=== PATIENT | female | born 1985 | race Caucasian/White ===

== ENCOUNTER 2017-01-17 20:56 | Emergency (ER) | payer MEDICAID ==
[2017-01-17] MEDS ORDERED: NS 1,000 ML IV ONE ×2 (21:31→22:44)
[2017-01-17 21:42] LABS: % IMMATURE GRANULYOCYTES 0.1 % (0.0-1.1); ABSOLUTE IMMATURE GRANULOCYTES 0.01 10^3/uL (0.00-0.10); ADD DIFF? NO; ADD MORPH? NO; ADD SCAN? NO; ATYPICAL LYMPHOCYTE FLAG 20 (0-99); FRAGMENT RBC FLAG 0 (0-99); HEMATOCRIT 35.6 % (38.0-47.0); HEMOGLOBIN 12.3 g/dL (12.6-16.3); LEFT SHIFT FLG 0 (0-99); LIPEMIA HEMOLYSIS FLAG 90 (0-99); MEAN CELL HEMOGLOBIN 29.1 pg (27.9-34.1); MEAN CELL HEMOGLOBIN CONCENTR. 34.6 g/dL (32.4-36.7); MEAN CELL VOLUME 84.2 fL (81.5-99.8); MEAN PLATELET VOLUME 9.3 fL (8.7-11.7); PLATELET CLUMPS FLAG 0 (0-99); PLATELET COUNT 367 10^3/uL (150-400); RED BLOOD CELL COUNT 4.23 10^6/uL (4.18-5.33); RED CELL DISTRIBUTION WIDTH 13.3 % (11.5-15.2)
--- NOTE | 2017-01-17 21:42 | CPEKG ---
Heart Rate: 56 RR Interval: 1071 P-R Interval: 172 QRSD Interval: 116 QT Interval: 460 QTC Interval: 444 P Hitchcock: 40 QRS Hitchcock: 64 T Wave Hitchcock: 36 EKG Severity - ABNORMAL ECG - EKG Impression: SINUS RHYTHM EKG Impression: INCOMPLETE RIGHT BUNDLE BRANCH BLOCK Electronically Signed By: Alexx Manuel 18-Jan-2017 08:58:45
[2017-01-17] MEDS ORDERED: ONDANSETRON 4 MG/2 ML VIAL IVP ONE (21:45)
[2017-01-17 22:12] LABS: ANION GAP 11 mEq/L (8-16); CALCIUM 9.6 mg/dL (8.5-10.4); CARBON DIOXIDE 23 mEq/l (22-31); CHLORIDE 104 mEq/L (97-110); CREATININE 0.7 mg/dL (0.6-1.0); GLOMERULAR FILTRATION RATE > 60; GLUCOSE 93 mg/dL (70-100); POTASSIUM 4.1 mEq/L (3.5-5.2); SODIUM 138 mEq/L (134-144)
--- NOTE | 2017-01-17 22:26 | EDPHY ---
H & P Stated Complaint: fainting x 19days- hx pericarditis, left tampon in 17days Time Seen by Provider: 01/17/17 21:47 HPI/ROS: HPI CHIEF COMPLAINT: Syncope HISTORY OF PRESENT ILLNESS: This patient very pleasant 31-year-old female significant past medical history for migraine headaches, previous eating disorder, pericarditis, multiple surgeries of her kidneys due to severe hydronephrosis, presents emergency room after she tells me she has been passing out over the past 19 days. She tells me she has had 8 separate syncopal episodes. Positive LOC. These were unwitnessed. She does endorse bowel bladder incontinence at times and waking up very confused. She denies any significant preceding symptoms. Specifically denies chest pain, palpitations, shortness of breath. She does admit to having some lightheadedness. Patient also tells me that she accidentally left a tampon in for close to 17 days. She did not realize that it was in. She realize that it was in after having intercourse with her having discomfort. She did removed the tampon herself. She states that she thinks it was in for 17 days. She denies pelvic pain, vaginal discharge, abdominal pain, fever, rash. Denies petechiae or purpura. Denies skin sloughing mucous membrane blisters. She states she removed the tampon 2-3 days ago has been feeling better since then. Denies vaginal discharge. I did explain we should probably do a vaginal exam to make sure there is no further retained foreign body however she has declined she does not want a vaginal exam. I did offer female however she still declined. She did talk to her primary care doctor about the recurrent episodes of syncope. She is supposed to follow-up with [facility] but has not done so. After great discussion with the patient is unclear if she is having syncopal episodes versus seizures. Here in the emergency room she appears well nontoxic no acute distress, vital signs reviewed normal. She has no focal neuro deficit. No headache. No chest pain shortness of breath at this time. No fever. Past Medical History: Eating disorder, migraine headaches, pericarditis, multiple kidney surgeries due to hydronephrosis Past Surgical History: kidney surgeries, tubal ligation Social History: Lives in [place], denies daily use of drugs alcohol tobacco products Family History: noncontributory ROS REVIEW OF SYSTEMS: A comprehensive 10 point review of systems is otherwise negative aside from elements mentioned in the history of present illness. Exam Constitutional appears well nontoxic, triage nursing summary reviewed, vital signs reviewed, awake/alert. Eyes normal conjunctivae and sclera, EOMI, PERRLA. HENT normal inspection, atraumatic, moist mucus membranes, no epistaxis, neck supple/ no meningismus, no raccoon eyes. Respiratory clear to auscultation bilaterally, normal breath sounds, no respiratory distress, no wheezing. Cardiovascular rate normal, regular rhythm, no murmur, no edema, distal pulses normal. Gastrointestinal soft, non-tender, no rebound, no guarding, normal bowel sounds, no distension, no pulsatile mass. Genitourinary no CVA tenderness. Musculoskeletal no midline vertebral tenderness, full range of motion, no calf swelling, no tenderness of extremities, no meningismus, good pulses, neurovascularly intact. Skin no rash, pink, warm, & dry, no rash, skin atraumatic. Neurologic awake, alert and oriented x 3, AAOx3, moves all 4 extremities equally, motor intact, sensory intact, CN II-XII intact, normal cerebellar, normal vision, normal speech. Psychiatric normal mood/affect. Heme/Lymph/Immune no lymphadenopathy. Differential Diagnosis: Includes but is not limited to in a particular order vasovagal syncope, orthostatic syncope, retained tampon causing toxic shock syndrome (patient has no evidence of this), electrolyte disturbance, dehydration , cardiac arrhythmia, infection, UTI, orthostatic hypertension, seizures Medical Decision Making: plan for this patient check blood work, including troponin, EKG, chest x-ray, cardiac sonographer IV fluids check CBC, magnesium, urinalysis. Patient declined pelvic exam. It Is no this patient has a normal neurological exam. Re-evaluation: EKG interpretation by me on record in [facility] system. Impression time of EKG 2140, this is sinus rhythm rate of 56 otherwise unremarkable EKG no acute ischemic changes. Specifically no ST elevation, ST depression or prolonged intervals. Unremarkable EKG. 1220AM: Re-examination at this time. Patient's heart rate 58. Pulse ox 96%. Afebrile. She is resting comfortably no complaints. She has been on cardiac sonographer the entire time she is here no signs of cardiac arrhythmia. Troponin negative EKG unremarkable. Still unclear if this is seizure activity versus syncope. I do recommend she follows up with Cardiology and has a Holter monitor , also Neurology. Will refer her to both. However may nausea understands develops worsening symptoms includes recurrent syncope, chest pain, shortness of breath, or seizure activity she needs return emergency room. At this time I have no evidence of toxic shock syndrome, she appears well afebrile no white count no rash, no skin peeling. Denies vaginal discharge. Refused pelvic exam. She understands return emergency room if there is worsening symptoms questions or concerns. Source: Patient - Personal History LMP (Females 10-55): 1-7 Days Ago Tetanus Vaccine Date: less than 10 years - Medical/Surgical History Hx Asthma: No Hx Chronic Respiratory Disease: No Hx Diabetes: No Hx Cardiac Disease: Yes Hx Renal Disease: Yes Hx Cirrhosis: No Hx Alcoholism: No Hx HIV/AIDS: No Hx Splenectomy or Spleen Trauma: No Other PMH: PMH:migranies, eating disorder. PSH: tubal, ear tiubes, nephrostomy - Social History Smoking Status: Never smoked Constitutional: Initial Vital Signs Temperature (C) 36.7 C 01/17/17 21:01 Heart Rate 54 L 01/17/17 21:01 Respiratory Rate 20 01/17/17 21:01 Blood Pressure 127/67 H 01/17/17 21:01 O2 Sat (%) 99 01/17/17 21:01 O2 Delivery Mode Room Air Allergies/Adverse Reactions: amoxicillin Allergy (Verified 04/05/15 08:16) amoxicillin trihydrate [From Augmentin] Allergy (Verified 04/05/15 08:16) morphine Allergy (Verified 04/05/15 08:16) potassium clavulanate [From Augmentin] Allergy (Verified 04/05/15 08:16) sumatriptan [From Imitrex] Allergy (Verified 04/05/15 08:16) sumatriptan succinate [From Imitrex] Allergy (Verified 04/05/15 08:16) Home Medications: Medication Instructions Recorded HYDROcodone/APAP 10/325 [Horton 1 - 2 each PO Q4-6PRN PRN #20 tab 04/04/15 10/325 (*)] Tobramycin/Dexameth [Tobradex opht 1 - 2 drops RTEYE Q4 #1 opht.btl 04/04/15 drops (*)] Cefuroxime Axetil [Ceftin (*)] 250 mg PO BID #14 tab 04/06/15 Medical Decision Making - Diagnostics Imaging: Imaging Impressions Chest X-Ray 01/17/17 22:39 Impression: Negative. - Data Points Laboratory Results: Laboratory Results 01/17/17 21:28 01/17/17 21:28 01/17/17 01/17/17 01/17/17 21:28 21:28 21:28 WBC RBC Hgb Hct MCV MCH MCHC RDW Plt Count MPV Neut % (Auto) Lymph % (Auto) Motley % (Auto) Eos % (Auto) Baso % (Auto) Nucleat RBC Rel Count Absolute Neuts (auto) Absolute Lymphs (auto) Absolute Monos (auto) Absolute Eos (auto) Absolute Basos (auto) Absolute Nucleated RBC Immature Gran % Immature Gran # D-Dimer 0.33 ug/mLFEU ug/mLFEU (0.00-0.50) Sodium Potassium Chloride Carbon Dioxide Anion Gap BUN Creatinine Estimated GFR Glucose Calcium Magnesium 2.0 mg/dL mg/dL (1.6-2.3) Total Bilirubin 0.7 mg/dL mg/dL (0.1-1.4) Conjugated Bilirubin 0.4 mg/dL mg/dL (0.0-0.5) Unconjugated Bilirubin 0.3 mg/dL mg/dL (0.0-1.1) AST 27 IU/L IU/L (14-46) ALT 45 IU/L IU/L (9-52) Alkaline Phosphatase 77 IU/L IU/L (38-126) Troponin I < 0.012 ng/mL ng/mL (0-0.034) NT-Pro-B Natriuret Pep 32 pg/mL pg/mL (0-125) Total Protein 7.2 g/dL g/dL (6.3-8.2) Albumin 4.4 g/dL g/dL (3.5-5.0) Lipase 137.0 IU/L IU/L (23-300) Beta HCG, Qual NEGATIVE 01/17/17 01/17/17 21:28 21:28 WBC 7.95 10^3/uL 10^3/uL (3.80-9.50) RBC 4.23 10^6/uL 10^6/uL (4.18-5.33) Hgb 12.3 g/dL L g/dL (12.6-16.3) Hct 35.6 % L % (38.0-47.0) MCV 84.2 fL fL (81.5-99.8) MCH 29.1 pg pg (27.9-34.1) MCHC 34.6 g/dL g/dL (32.4-36.7) RDW 13.3 % % (11.5-15.2) Plt Count 367 10^3/uL 10^3/uL (150-400) MPV 9.3 fL fL (8.7-11.7) Neut % (Auto) 37.0 % L % (39.3-74.2) Lymph % (Auto) 53.5 % H % (15.0-45.0) Motley % (Auto) 7.2 % % (4.5-13.0) Eos % (Auto) 1.3 % % (0.6-7.6) Baso % (Auto) 0.9 % % (0.3-1.7) Nucleat RBC Rel Count 0.0 % % (0.0-0.2) Absolute Neuts (auto) 2.95 10^3/uL 10^3/uL (1.70-6.50) Absolute Lymphs (auto) 4.25 10^3/uL H 10^3/uL (1.00-3.00) Absolute Monos (auto) 0.57 10^3/uL 10^3/uL (0.30-0.80) Absolute Eos (auto) 0.10 10^3/uL 10^3/uL (0.03-0.40) Absolute Basos (auto) 0.07 10^3/uL 10^3/uL (0.02-0.10) Absolute Nucleated RBC 0.00 10^3/uL 10^3/uL (0-0.01) Immature Gran % 0.1 % % (0.0-1.1) Immature Gran # 0.01 10^3/uL 10^3/uL (0.00-0.10) D-Dimer Sodium 138 mEq/L mEq/L (134-144) Potassium 4.1 mEq/L mEq/L (3.5-5.2) Chloride 104 mEq/L mEq/L (97-110) Carbon Dioxide 23 mEq/l mEq/l (22-31) Anion Gap 11 mEq/L mEq/L (8-16) BUN 13 mg/dL mg/dL (7-23) Creatinine 0.7 mg/dL mg/dL (0.6-1.0) Estimated GFR > 60 Glucose 93 mg/dL mg/dL (70-100) Calcium 9.6 mg/dL mg/dL (8.5-10.4) Magnesium Total Bilirubin Conjugated Bilirubin Unconjugated Bilirubin AST ALT Alkaline Phosphatase Troponin I NT-Pro-B Natriuret Pep Total Protein Albumin Lipase Beta HCG, Qual Medications Given: Discontinued Medications Sodium Chloride (Ns) 1,000 mls @ 0 mls/hr IV ONCE ONE PRN Reason: Wide Open Stop: 01/17/17 21:32 Last Admin: 01/17/17 21:50 Dose: 1,000 mls Sodium Chloride (Ns) 1,000 mls @ 0 mls/hr IV ONCE ONE PRN Reason: Wide Open Stop: 01/17/17 22:45 Last Admin: 01/17/17 23:00 Dose: 1,000 mls Ondansetron HCl (Zofran) 4 mg IVP EDNOW ONE Stop: 01/17/17 21:46 Last Admin: 01/17/17 21:49 Dose: 4 mg Departure - Departure Disposition: Home, Routine, Self-Care Clinical Impression: Syncope Qualifiers: Syncope type: unspecified Qualified Code(s): R55 - Syncope and collapse Condition: Good Instructions: Syncope (ED) Additional Instructions: 1. make sure to drink lots of fluids stay well-hydrated 2. Return to the emergency review of worsening symptoms questions or concerns includes passing out chest pain shortness of breath severe headache. 3. I do recommend he follow up with Cardiology and get a Holter monitor. Please call to make an appointment. Tell them here in the emergency room. Referred to them. 4. I also recommend your see Neurology. Call and make an appointment. Referrals: Natividad Terrazas [Primary Care Provider] - As per Instructions Sho Willoughby MD [Medical Doctor] - As per Instructions Toni Carl DO [Medical Doctor] - As per Instructions
[2017-01-17 22:53] LABS: ALANINE AMINOTRANSFERASE 45 IU/L (9-52); ALBUMIN 4.4 g/dL (3.5-5.0); ALKALINE PHOSPHATASE 77 IU/L (38-126); ASPARTATE AMINOTRANSFERASE 27 IU/L (14-46); BILIRUBIN,TOTAL 0.7 mg/dL (0.1-1.4); BILIRUBIN-CONJUGATED 0.4 mg/dL (0.0-0.5); BILIRUBIN-UNCONJUGATED 0.3 mg/dL (0.0-1.1); TOTAL PROTEIN 7.2 g/dL (6.3-8.2)
[2017-01-17 23:04] LABS: TROPONIN I < 0.012 ng/mL (0-0.034)
[2017-01-18 00:39] LABS: COLOR YELLOW; LEUKOCYTE ESTERASE,URINE NEGATIVE (NEGATIVE); NITRITE,URINE NEGATIVE (NEGATIVE)
[2017-01-18 01:04] VITALS: BP 96/94; PULSE 58; RESP 16; TEMP 97.3; O2SAT 95
== END 2017-01-18 01:04 | disposition home or self-care (01) ==
DX: R55 Syncope and collapse (principal)
CPT/HCPCS: 96374; J2405